=== PATIENT | female | born 1975 | race American Indian/Alaskan Native ===

== ENCOUNTER 2019-08-09 09:41 | Emergency (ER) | payer BC ==
--- NOTE | 2019-08-09 09:56 | EDM.PDOC ---
ED HPI GENERAL MEDICAL PROBLEM - General Chief Complaint: Laceration Stated Complaint: SMASHED FINGER Time Seen by Provider: 08/09/19 09:45 Source of Information: Reports: Patient History Limitations: Reports: No Limitations - History of Present Illness INITIAL COMMENTS - FREE TEXT/NARRATIVE: This 44 year female smashed her left middle finger between a boat dock and her boat injuring the distal part of her middle finger. She complains of a laceration to the left middle finger. She denies any other injuries or complaints. Middle Finger Pain Score (Numeric/FACES): 5 - Related Data Allergies Allergy/AdvReac Type Severity Reaction Status Date / Time No Known Allergies Allergy Verified 08/09/19 09:44 Home Meds: Home Meds Losartan/Hydrochlorothiazide [Losartan-HCTZ 100-12.5 MG] 1 tab PO DAILY [History] ED ROS GENERAL - Review of Systems Review Of Systems: Comprehensive ROS is negative, except as noted in HPI. ED EXAM, SKIN/RASH Exam: See Below Exam Limited By: No Limitations General Appearance: Alert, WD/WN, No Apparent Distress Head: Atraumatic, Normocephalic Neck: Normal Inspection, Supple Respiratory/Chest: No Respiratory Distress, Lungs Clear Cardiovascular: Normal Peripheral Pulses, No Edema, No Murmur, Tachycardia Peripheral Pulses: 3+: Radial (L), Radial (R) GI/Abdominal: Normal Bowel Sounds (Female) Exam: Deferred Rectal (Female) Exam: Deferred Back Exam: Normal Inspection Extremities: Other (3.5cm superficial laceration of the distal ulna side of the left middle finger. Neruo /Vasc intact. It will require sutures. All other extremities are normal.) Neurological: Alert, Oriented (times 4), CN II-XII Intact, Normal Reflexes Location, Skin: Other (laceration as noted above) ED SKIN PROCEDURES - Laceration/Wound Repair Left Digit - 3rd (Middle) Appearance: Superficial, Clean Distal NVT: Neuro & Vascular Intact Anesthetic Type: Digital Local Anesthesia - Lidocaine (Xylocaine): 2% Plain Local Anesthetic Volume: Other (6cc) Skin Prep: Providone-Iodine (Betadine) Exploration/Debridement/Repair: Wound Explored, In a Bloodless Field, Minimal Debridement Closed with: Sutures Lac/Wound length In cm: 3.5 Suture Size: 4-0 # of Sutures: 4 Suture Type: Nylon, Interrupted Progress/Comments: The patient tolerated the procedure well. She will have x-rays to rule out fracture of the distal phalanx. If the x-ray is positive, she will be placed on Keflex. The wound was cleaned and dressed with a sterile tube like gauze. Course - Vital Signs Text/Narrative:: I reviewed the patients x-rays of the left middle finger and are negative for fracture or dislocation. She states that her last tetanus shot was three years ago. She will be discharged. She agrees with the discharge plan. Last Recorded V/S: Last Vital Signs Temp 97.7 F 08/09/19 09:46 Pulse 111 H 08/09/19 09:46 Resp 16 08/09/19 09:46 BP 162/103 H 08/09/19 09:46 Pulse Ox 95 08/09/19 09:46 - Orders/Labs/Meds Orders: Active Orders 24 hr Category Date Time Status Fingers Multiple Lt [CR] Stat Exams 08/09/19 10:17 Ordered Meds: Medications Discontinued Medications Generic Name Dose Route Start Last Admin Trade Name Darryl PRN Reason Stop Dose Admin Lidocaine HCl 5 ml 08/09/19 09:49 08/09/19 10:21 Xylocaine-Mpf 1% INJECT 08/09/19 09:50 5 ml ONETIME ONE Administration Lidocaine HCl Confirm 08/09/19 09:51 08/09/19 10:03 Xylocaine-Mpf 1% Administered 08/09/19 09:52 Not Given Dose 5 ml .ROUTE .STK-MED ONE Lidocaine HCl 5 ml 08/09/19 10:03 08/09/19 10:21 Xylocaine-Mpf 1% INJECT 08/09/19 10:04 5 ml ONETIME ONE Administration Departure - Departure Time of Disposition: 10:50 Disposition: Home, Self-Care 01 Condition: Good Clinical Impression: Laceration of finger of left hand without damage to nail Qualifiers: Encounter type: initial encounter Finger: middle finger Foreign body presence: without foreign body Qualified Code(s): S61.213A - Laceration without foreign body of left middle finger without damage to nail, initial encounter - Discharge Information *PRESCRIPTION DRUG MONITORING PROGRAM REVIEWED*: Yes *COPY OF PRESCRIPTION DRUG MONITORING REPORT IN PATIENT TANYA: Yes Instructions: Sutures, Marshall, or Adhesive Wound Closure, Sutured Wound Care Forms: ED Department Discharge Additional Instructions: Take over the counter medications for pain. Follow up with your PCP in the next four days for wound check. Sutures should be removed in 10-12 days. Keep your wound clean and dry as much as possible. Rest for the next 24 hours. Return to the ED if your condition gets worse or should you have any questions or concerns. The following information is given to patients seen in the emergency department who are being discharged to home. This information is to outline your options for follow-up care. We provide all patients seen in our emergency department with a follow-up referral. The need for follow-up, as well as the timing and circumstances, are variable depending upon the specifics of your emergency department visit. If you don't have a primary care physician on staff, we will provide you with a referral. We always advise you to contact your personal physician following an emergency department visit to inform them of the circumstance of the visit and for follow-up with them and/or the need for any referrals to a consulting specialist. The emergency department will also refer you to a specialist when appropriate. This referral assures that you have the opportunity for follow-up care with a specialist. All of these measure are taken in an effort to provide you with optimal care, which includes your follow-up. Under all circumstances we always encourage you to contact your private physician who remains a resource for coordinating your care. When calling for follow-up care, please make the office aware that this follow-up is from your recent emergency room visit. If for any reason you are refused follow-up, please contact the [facility] Emergency Department at and asked to speak to the emergency department charge nurse. Sepsis Event Note - Focused Exam Vital Signs: Vital Signs Temp Pulse Resp BP Pulse Ox 08/09/19 09:46 97.7 F 111 H 16 162/103 H 95 Date Exam was Performed: 08/09/19 Time Exam was Performed: 10:46 - My Orders Last 24 Hours: My Active Orders 08/09/19 10:17 Fingers Multiple Lt [CR] Stat - Assessment/Plan Last 24 Hours: My Active Orders 08/09/19 10:17 Fingers Multiple Lt [CR] Stat
--- NOTE | 2019-08-09 11:20 | CR ---
Clinical INDICATION: Injury. Technique : Three views of the left 3rd finger. FINDINGS: The soft tissue at the tip of the 3rd finger is swollen. There is no underlying fracture, dislocation or radiodense foreign body. IMPRESSION: Soft tissue swelling. Dictated by Tej Esparza MD @ Aug 09 2019 11:17AM Signed by Dr. Tej Esparza @ Aug 09 2019 11:18AM JUAN C
== END 2019-08-09 11:16 | disposition home or self-care (01) ==
LOC: MW.ED 09:41
DX: S61.213A Laceration without foreign body of left middle finger without damage to nail, initial encounter (principal); Z79.899 Other long term (current) drug therapy; W22.8XXA Striking against or struck by other objects, initial encounter
CPT/HCPCS: 12002; 73140; 99283; J2001; 99282